=== PATIENT | female | born 1960 | race Caucasian/White ===

== ENCOUNTER 2017-11-15 08:41 | Day surgery (SDC) | payer OTHER ==
[2017-11-15] MEDS ORDERED: LIDOCAINE 4% SOLUTION 50 ML BTL (11:00)
[2017-11-15] MEDS ORDERED: FENTAnyl 50 MCG/ML VIAL (11:45)
[2017-11-15] MEDS ORDERED: MIDAZOLAM 1 MG/ML 2 ML INJ ×2 (11:45)
== END 2017-11-15 15:28 | disposition home or self-care (01) ==
LOC: GIL 08:41
DX: Z12.11 Encounter for screening for malignant neoplasm of colon (principal); K29.50 Unspecified chronic gastritis without bleeding; K57.90 Diverticulosis of intestine, part unspecified, without perforation or abscess without bleeding; K64.4 Residual hemorrhoidal skin tags; K21.0 Gastro-esophageal reflux disease with esophagitis
CPT/HCPCS: 43239; 88305; 88312